=== PATIENT | male | born 2000 | race Caucasian/White ===

== ENCOUNTER 2023-08-19 10:01 | Emergency (ER) | payer SELFPAY ==
[2023-08-19 10:06] VITALS: BP 125/83; PULSE 92; RESP 18; TEMP 36.5; O2SAT 100; BMI 19.8
--- NOTE | 2023-08-19 10:11 | US_ITS ---
The [address] [address] Patient Name: LAYLA MCDANIELS MRN: [id number] date: 2000 Sex: M Assigned Patient Location: ER Current Patient Location: ER Accession/Order Number: [id number] Exam Date: 08/19/2023 10:55 Report Date: 08/19/2023 12:32 At the request of: CHARLENE SIMENTAL Procedure: US scrotum doppler EXAM: US scrotum doppler 08/19/2023. TECHNIQUE: Multiple sagittal and transverse images of the scrotum were obtained. Callaway-scale, color, and spectral wave Doppler analysis was utilized. HISTORY: Left testicular pain. COMPARISON: None. FINDINGS: The right testicle measures 4.7 x 3.6 x 2.5 cm. The left testicle measures 5.0 x 2.8 x 2.0 cm. The testicular parenchyma bilaterally is homogeneous without underlying mass. Arterial and venous waveforms are identified within the testicular parenchyma bilaterally when interrogated with Doppler. The right epididymal head measures 12 mm superior to inferior on longitudinal imaging. Small right-sided varicocele is suspected. Left epididymis appears unremarkable as well. Small left-sided varicocele noted. US/US scrotum doppler IMPRESSION: 1. Negative for intratesticular mass or torsion. Right and left epididymis appear unremarkable. 2. Small bilateral varicoceles suspected. Electronically authenticated by: ANY GARDUNO Date: 08/19/2023 12:32
--- NOTE | 2023-08-19 10:12 | ED_ITS ---
HPI - Male Genitourinary General Chief complaint: Urogenital-Male Stated complaint: GROIN PAIN Time Seen by Provider: 08/19/23 10:06 History of Present Illness HPI Narrative: about a week ago developed pain in the left testicle. Kavon has persisted since onset. No urethral discharge or pain with urination. No prominent lymph nodes in the groin. No fever or vomiting. Patient denied any injury to the scrotum, recent activity which might have led to scrotal pain such as horseback riding, bicycle or motorcycle riding. Nothing taken this morning for the pain. Related Data Previous Rx's Medication Instructions Recorded nabumetone 750 mg tablet 750 mg PO BID PRN pain #20 tabs 08/19/23 Allergies Allergy/AdvReac Type Severity Reaction Status Date / Time No Known Drug Allergies Allergy Verified 08/19/23 10:06 Exam Narrative Exam Narrative: Nurses notes and vital signs reviewed and patient is not hypoxic. afebrile General: Well-appearing and in no apparent distress. Skin: Warm, dry, no pallor noted. No rash. Eye: Pupils are equal, round and EOMI. No scleral icterus. Cardiovascular: Regular Rate and Rhythm without murmur, gallop or rub. Respiratory: No accessory muscle use or respiratory distress. Lungs are clear to auscultation, no wheezing, rales or rhonchi GI: Abdomen is soft, non-distended. Normal bowel sounds. No masses appreciated. No tenderness to palpation. No rebound, guarding, or rigidity noted. Genital: proctored exam with ED Nurse Bernardo present. Left testicle is tender to palpation - especially superiorly - but is normal in size compared to the right testicle. no scrotal or penile lesions, swelling, erythema noted. Normal testicular reflex. No evidence of perineal infection. Neurological: A&O x4. No cranial nerve dysfunction observed. No truncal ataxia. Moves all extremities. Sensation intact. Psychiatric: Cooperative and interactive. Normal mood and affect. Constitutional Vital Signs, click to edit/add: Last Vital Signs Temp 97.7 F 08/19/23 10:06 Pulse 92 H 08/19/23 10:06 Resp 18 08/19/23 10:06 BP 125/83 08/19/23 10:06 Pulse Ox 100 08/19/23 10:06 Course Vital Signs Vital signs: Vital Signs Temperature 97.7 F 08/19/23 10:06 Pulse Rate 92 H 08/19/23 10:06 Respiratory Rate 18 08/19/23 10:06 Blood Pressure 125/83 08/19/23 10:06 Pulse Oximetry 100 08/19/23 10:06 Temperature 97.7 F 08/19/23 10:06 Pulse Rate 92 H 08/19/23 10:06 Respiratory Rate 18 08/19/23 10:06 Blood Pressure 125/83 08/19/23 10:06 Pulse Oximetry 100 08/19/23 10:06 MDM - Male Genitourinary MDM Narrative Medical decision making narrative: urine sent for testing. Scrotal US performed. Patient given Tylenol and Motrin for pain. Scrotal US negative for torsion, epididymitis or other worrisome changes. Patient given reassurance and discharged home with prescription for Relafen and recommendation to wear supportive underwear, apply ice as needed, avoid vigorous activity. . Lab Data Attestation: I reviewed the patient's lab results. Labs: Lab Results 08/19/23 Range/Units 11:29 Urine Color Yellow (YELLOW) Urine Clarity Clear (CLEAR) Urine pH 6.5 (5.0-9.0) Ur Specific [place] 1.020 (1.005-1.025) Urine Protein Negative (NEG/TRACE) mg/dL Urine Glucose (UA) Negative (NEGATIVE) mg/dL Urine Ketones Negative (NEGATIVE) mg/dL Urine Occult Blood Negative (NEGATIVE) Urine Nitrite Negative (NEGATIVE) Urine Bilirubin Negative (NEGATIVE) Urine Urobilinogen 0.2 (0.2-1.0) EU/dL Ur Leukocyte Esterase Negative (NEGATIVE) Imaging Data US scrotum: Radiologist's impression: Patient: LAYLA MCDANIELS MR#: [id number] : 2000 Acct:[id number] Age/Sex: 23 / M ADM Date: 08/19/23 Loc: ER Attending Dr: Ordering Physician: Charlene Simental D.O. Date of Service: 08/19/23 Procedure(s): US scrotum doppler Accession Number(s): [id number] cc: ~ [facility] [place] [id number] Patient Name: LAYLA MCDANIELS MRN: [facility]:[id number] date: 2000 Sex: M Assigned Patient Location: ER Current Patient Location: Accession/Order Number: [id number] Exam Date: 08/19/2023 10:55 Report Date: 08/19/2023 12:08 At the request of: CHARLENE SIMENTAL Procedure: US scrotum doppler EXAM: US scrotum doppler 08/19/2023. TECHNIQUE: Multiple sagittal and transverse images of the scrotum were obtained. Callaway-scale, color, and spectral wave Doppler analysis was utilized. HISTORY: Left testicular pain. COMPARISON: None. FINDINGS: The right testicle measures 4.7 x 3.6 x 2.5 cm. The left testicle measures 5.0 x 2.8 x 2.0 cm. The testicular parenchyma bilaterally is homogeneous without underlying mass. Arterial and venous waveforms are identified within the testicular parenchyma bilaterally when interrogated with Doppler. The right epididymal head measures 12 mm superior to inferior on longitudinal imaging. Small right-sided varicocele is suspected. Left epididymis appears unremarkable as well. Small left-sided varicocele noted. US/US scrotum doppler IMPRESSION: 1. Negative for intratesticular mass or torsion. Right and left epididymis appear unremarkable. 2. Small bilateral varicoceles suspected. Electronically authenticated by: ANY GARDUNO Date: 08/19/2023 12:08 Discharge Plan Discharge Chief Complaint: Urogenital-Male Clinical Impression: Left testicular pain Patient Disposition: Home, Self-Care Time of Disposition Decision: 11:25 Prescriptions / Home Meds: New nabumetone 750 mg tablet 750 mg PO BID PRN (Reason: pain) Qty: 20 0RF Instructions: Testicle Pain (ED) Stand Alone Forms: Portal Instructions Discharge Date/Time: 08/19/23 11:32
[2023-08-19] MEDS: IBUPROFEN 400 MG TABLET 800 MG PO (10:28)
[2023-08-19] MEDS: ACETAMINOPHEN 500 MG TABLET 1000 MG PO (10:29)
[2023-08-19 12:06] LABS: Bilirubin Urine NEGATIVE (NEGATIVE); Blood Urine NEGATIVE (NEGATIVE); Clarity Urine CLEAR (CLEAR); Color Urine YELLOW (YELLOW); Glucose Urine UA NEGATIVE (NEGATIVE); Ketones Urine NEGATIVE (NEGATIVE); Leukocyte Esterase Urine NEGATIVE (NEGATIVE); Nitrite Urine NEGATIVE (NEGATIVE); Protein Urine NEGATIVE (NEG/TRACE); Urobilinogen Urine 0.2 EU/dL (0.2-1.0); pH Urine 6.5 (5.0-9.0)
[2023-08-19 12:10] LABS: Urine Microscopic Indicated NO
== END 2023-08-19 11:32 | disposition home or self-care (01) ==
LOC: ER 11:30
PROVIDERS: Emergency Provider Emergency Medicine
DX: N50.812 Left testicular pain (principal)
CPT/HCPCS: 76870; 81003; 93976; 99284